=== PATIENT | male | born 1950 | race Caucasian/White ===

== ENCOUNTER → 2016-11-25 | Outpatient (CLI) | payer BC, MEDICARE ==
[~2016-11-25] MED LIST: ACET-1138 PO; ADVIN25/60 INH; ASPI81TA28 PO; CRS/10 PO; ENOX80IN SQ; MCRB100 PO; METO1TAB69 PO; MULT-506 PO; OMEG10007 PO; RXC5 PO; VALS320T2 PO; WARF4TAB8 PO; WARF6TAB5 PO
[2016-11-25 14:00] LABS: BASO % 0.5 %; BASO ABS # 0.03 K/uL (0-0.2); COMPLETE YES; EOS % 2.2 %; HEMATOCRIT 44.3 % (42-52); IG% 0.2 %; LYMPH % 20.3 %; LYMPH ABS # 1.11 K/uL (1.2-3.4); MEAN CELL VOLUME 94.7 fL (80-100); MEAN CORPUSCULAR HEMOGLOBIN 32.3 pg (25-34); MEAN CORPUSCULAR HGB CONC 34.1 g/dl (32-36); MEAN PLATELET VOLUME 10.5 fL (7.4-10.4); MONO % 13.3 %; NEUT % 63.5 %; PLATELET COUNT 170 K/uL (130-400); RED BLOOD COUNT 4.68 M/uL (4.7-6.1); WHITE BLOOD COUNT 5.48 K/uL (4.8-10.8)
[2016-11-25 14:26] LABS: ALT/SGPT 21 U/L (12-78); BLOOD UREA NITROGEN 10 mg/dl (7-18); BUN/CREATININE RATIO 12.1 (10-20); CALCIUM 8.8 mg/dl (8.5-10.1); CARBON DIOXIDE 29 mmol/L (21-32); CHLORIDE 103 mmol/L (98-107); CHOLESTEROL 150 mg/dl (0-200); CREATININE 0.82 mg/dl (0.60-1.40); GLUCOSE 92 mg/dl (70-99); SODIUM 140 mmol/L (136-145)
[2016-11-25 14:36] LABS: ALB/GLOB RATIO 1.3 (0.9-2); ALKALINE PHOSPHATASE 54 U/L (45-117); AST/SGOT 20 U/L (15-37); CHOLESTEROL/HDL RATIO 2.5; HDL CHOLESTEROL 59 mg/dl; LDL CHOLESTEROL CALCULATED 78 mg/dl; PROSTATE SPECIFIC ANTIGEN 0.631 ng/ml (0.000-4.000); THYROID STIMULATING HORMONE 0.753 uIu/ml (0.300-4.500); TRIGLYCERIDES 65 mg/dl (0-150); VERY LOW DENSITY LIPOPROT CALC 13 mg/dl
[2016-11-25 14:41] LABS: ESTIMATED AVERAGE GLUCOSE 105 mg/dl; HA1C FLAG Normal (Normal)
== END | disposition home or self-care (01) ==
LOC: C.LABMFLN 11:00
PROVIDERS: ATTEND Family Medicine
DX: Z11.59 Encounter for screening for other viral diseases (principal); I10 Essential (primary) hypertension; E78.5 Hyperlipidemia, unspecified; R73.01 Impaired fasting glucose; Z12.5 Encounter for screening for malignant neoplasm of prostate

== ENCOUNTER 2017-02-28 08:14 | Inpatient (IN) | payer MEDICARE, OTHER ==
[2017-02-10 11:43] VITALS: BMI 32.0
--- NOTE | 2017-02-10 12:21 | PAT Medication Instructions ---
Service Date Feb 10, 2017. Current Home Medication List Aspirin (Aspirin Ec), 81 MG PO QAM Fish Oil (Fresno-3), 1 CAP PO QAM Fluticasone Prop/Salmeterol (Advair Diskus 250/50 60 Dose), 1 PUFF INH BID PRN for PRN Metoprolol Succ (Toprol Xl) (Toprol-Xl ), 150 MG PO QAM Multivitamin (Multivitamin), 1 TAB PO QAM Rosuvastatin Calcium (Crestor), 10 MG PO HS Valsartan/Hctz (Diovan Hct 320MG/25MG), 1 TAB PO QAM Warfarin Sod (Jantoven), 4 MG PO MONDAY Warfarin Sod (Jantoven), 6 MG PO M,T,R,F.,NOE Medication Instructions For Your Scheduled Surgery Warfarin Sod (Jantoven (per [facility] instructions) - Hold the following medications 2 weeks prior to surgery: Fish Oil (Fresno-3), 1 CAP PO QAM - Hold the following medications the morning of surgery: Valsartan/Hctz (Diovan Hct 320MG/25MG), 1 TAB PO QAM Multivitamin (Multivitamin), 1 TAB PO QAM - Take the following medications the morning of surgery with a sip of water: Metoprolol Succ (Toprol Xl) (Toprol-Xl ), 150 MG PO QAM Aspirin (Aspirin Ec), 81 MG PO QAM Fluticasone Prop/Salmeterol (Advair Diskus 250/50 60 Dose), 1 PUFF INH BID PRN for PRN - Take the following medications as scheduled the night before surgery: Rosuvastatin Calcium (Crestor), 10 MG PO HS Fluticasone Prop/Salmeterol (Advair Diskus 250/50 60 Dose), 1 PUFF INH BID PRN for PRN If you have any questions please call us at [phone] or [phone] ( [place]) or [phone]
[2017-02-10 12:43] LABS: BASO % 0.6 %; BASO ABS # 0.04 K/uL (0-0.2); COMPLETE YES; EOS % 1.6 %; HEMATOCRIT 43.6 % (42-52); IG% 0.4 %; LYMPH % 16.8 %; LYMPH ABS # 1.12 K/uL (1.2-3.4); MEAN CELL VOLUME 94.8 fL (80-100); MEAN CORPUSCULAR HEMOGLOBIN 32.4 pg (25-34); MEAN CORPUSCULAR HGB CONC 34.2 g/dl (32-36); MEAN PLATELET VOLUME 9.8 fL (7.4-10.4); MONO % 13.8 %; NEUT % 66.8 %; PLATELET COUNT 174 K/uL (130-400); WHITE BLOOD COUNT 6.67 K/uL (4.8-10.8)
--- NOTE | 2017-02-10 12:48 | DIAGNOSTIC IMAGING REPORT ---
CHEST 2 VIEWS ROUTINE CLINICAL HISTORY: PAT preoperative evaluation COMPARISON STUDY: None FINDINGS: Prior median sternotomy and valve replacement. Lungs are clear. Diaphragms are smooth. IMPRESSION: No acute process Electronically signed by: Sancho Mcdonald M.D. 02/10/2017 12:47 PM Dictated Date/Time: 02/10/2017 12:46 PM
[2017-02-10 12:57] LABS: INR 2.2 (0.9-1.1); PARTIAL THROMBOPLASTIN RATIO 1.4
[2017-02-10 14:02] LABS: BUN/CREATININE RATIO 15.5 (10-20); CREATININE 0.8 mg/dl (0.60-1.40); POTASSIUM 4.6 mmol/L (3.5-5.1)
--- NOTE | 2017-02-24 19:27 | HISTORY & PHYSICAL EXAMINATION ---
DATE OF ADMISSION: 02/28/2017 CHIEF COMPLAINT: Right knee pain. HISTORY OF PRESENT ILLNESS: A 66-year-old gentleman who presents for surgical treatment of his right knee. He has got a several year history of increasing right knee pain and discomfort. He has been followed and treated by my partner Dr. Walsh. He has been treated over the years with steroid shots and viscosupplementation which have become less successful over time. Pain is localized to the medial side of his knee. It is limiting his walking tolerance and he would like to have his knee replaced. He cannot take NSAIDs due to his Coumadin use and his aortic valve replacement. PAST MEDICAL HISTORY: Significant for: 1. Aortic valve replacement with mechanical valve in 2005. 2. Hypertension. 3. Asthma. 4. Obesity with a BMI of 32. PAST SURGICAL HISTORY: 1. Aortic valve replacement done in 2005 at [facility]. 2. Laparoscopic adrenalectomy in 2015. 3. Double hernia repair. 4. Tailbone cyst removal. ALLERGIES: TETRACYCLINE. CURRENT MEDICINES: Include: 1. Warfarin 4 mg a day and adjust as directed. 2. Metoprolol 150 mg a day. 3. Valsartan 320/25 once a day. 4. Rosuvastatin 10 mg a day. 5. Fish oil 2000 mg a day. 6. Baby Aspirin 81 mg a day. 7. Advair p.r.n. SOCIAL HISTORY: A 66-year-old male patient from [place]. He is . FAMILY HISTORY: Noncontributory. REVIEW OF SYSTEMS: Negative for diabetes, neurologic problems, neurovascular problems or bleeding disorders. He is on Coumadin. He had a mechanical aortic valve replacement. He is followed by Dr. Gibbons in [place]. Denies any current chest pain or shortness of breath. No history of DVTs or PEs. PHYSICAL EXAMINATION: GENERAL: Reveals a healthy, pleasant, middle-aged male. He looks to be in reasonable health. HEENT: Benign. NECK: Supple. No lymphadenopathy. LUNGS: Clear to auscultation. HEART: Has a regular rate and rhythm. ABDOMEN: Soft, nontender, nondistended. EXTREMITIES: Grossly neurovascularly intact except as follows: Examination of the right leg reveals the patient walks with a slight bit of limp. He has got varus alignment to his knee. He is tender over the medial joint line. Small knee effusion. Range of motion 0-125. No instability. X-RAYS: X-rays of the right knee revealed advanced medial compartment DJD. He has got complete loss of his medial joint space. No tibial femoral subluxation. With stress testing, the lateral compartment is well maintained. ASSESSMENT: A 66-year-old male with a fairly long history of right medial knee pain consistent with advanced disease. He has failed conservative treatment. He has limited NSAIDs used due to do his Coumadin requirement. He would like to have his knee fixed. PLAN: We talked about treatment options. We were going to take him to the operating room and do a right partial knee replacement. If we get in there and disease is too bad, we will do a full knee replacement. The risks and benefits were explained to the patient including but not limited to DVT, PE, , infection, neurologic injury, vascular injury, bleeding problem, pain, limited range of motion, stiffness, failure to relieve her symptoms, incomplete relief of symptoms, need for further surgery in the future, fracture, leg length inequality, nerve palsy, etc. The patient understands and desires to proceed. Informed consent was obtained. He has seen Dr. Gibbons and cleared for surgery. He has stopped his Coumadin 5 days preoperatively and will be on Lovenox bridge. The goal postoperative we will keep his INR between 2.5 and 3.5 as per the cardiology request. He has been told to take his metoprolol the morning of surgery. I will get a stat PT and INR in the a.m. surgery. He is planning to be discharged to home. He is in [facility].
[~2017-02-28] VITALS: Ht 180.3 cm; Wt 106.4 kg
[~2017-02-28 08:14] MED LIST changes: -ACET-1138 PO; +ACETAMINOPHEN 500 MG TAB PO SCH; +ATROPINE SULFATE 0.1 MG/ML 5ML SYR IV PRN; +BUPIVACAINE 0.25% 30 ML VIAL ONE; +BUPIVACAINE 0.5 % 5 MG/1 ML PF 10ML VIAL ONE; +BUPIVACAINE LIPOSOME 266 MG, BUPIVACAINE/EPINEPHRINE INJ 50 ML, SODIUM CHLORIDE 0.9% PF... INFIL SCH; +CEFAZOLIN 2000 MG/60 ML D5W 60 ML IV SCH; -ENOX80IN SQ; +EpHEDrine SULFATE INJ 50 MG/ML AMP IV PRN; +FAMOTIDINE 20 MG TAB PO SCH; +FENTANYL CITRATE INJ 50 MCG/1 ML 2 ML VIAL IV PRN; +GABAPENTIN 300 MG CAP PO SCH; +LACTATED RINGER'S 1000ML IV SCH; +LACTATED RINGER'S 500 ML IV SCH; -MCRB100 PO; +METO100T44 PO; -METO1TAB69 PO; +METOCLOPRAMIDE HCL 10 MG TAB PO SCH; +ONDANSETRON INJ 2 MG/ML 2 ML VIAL IV PRN; -RXC5 PO; +SCOPOLAMINE 1.5 MG TDSY TD SCH; +TRANEXAMIC ACID INJ 1,000 MG in SODIUM CHLORIDE 0.9% 100ML 100 ML IV SCH
[2017-02-28] MEDS ORDERED: ENOX80IN SQ (08:32)
[2017-02-28 08:36] VITALS: BP 129/91; PULSE 78; TEMP 36.4; O2SAT 98; Ht 180.3 cm; Wt 106.4 kg
[2017-02-28 08:52] LABS: INR 1.1 (0.9-1.1); PARTIAL THROMBOPLASTIN RATIO 1.1; PROTHROMBIN TIME (PATIENT) 11.9 SECONDS (9.0-12.0)
--- NOTE | 2017-02-28 08:52 | History & Physical Bridge Note ---
H&P Re-Evaluation Bridge Note: I have examined the patient, reviewed the History & Physical and in the interval since the performance of the History & Physical I have noted the following changes of clinical significance: No changes noted
[2017-02-28] MEDS ORDERED: MIDAZOLAM HCL 1 MG/ML 2ML VIAL ONE (10:12)
[2017-02-28] MEDS ORDERED: BUPIVACAINE/EPINEPHRINE 0.25% 1:200,000 30 ML VIAL ONE (11:00)
[2017-02-28] MEDS ORDERED: BACITRACIN 50000 UNIT VIAL ONE (11:00)
[2017-02-28] MEDS ORDERED: BUPIVACAINE LIPOSOME 1/3% 266 MG/20 ML VIAL INFIL ONE (11:00)
[2017-02-28] MEDS ORDERED: SODIUM CHLORIDE 0.9% PF 50 ML VIAL ONE (11:00)
[2017-02-28] MEDS ORDERED: PROPOFOL IV EMULSION 10 MG/ML 20 ML VIAL IV ONE ×2 (11:38→12:11)
[2017-02-28] MEDS ORDERED: LIDOCAINE HCL 2% 2 ML VIAL (20MG/ML) ONE (11:38)
[2017-02-28] MEDS ORDERED: PHENYLEPHRINE 100MCG/ML 5ML SYR ONE (11:45)
--- NOTE | 2017-02-28 12:59 | [facility] Post Operative Brief Note ---
Immediate Operative Summary Operative Date Feb 28, 2017. Pre-Operative Diagnosis Right Knee Advanced Medial Compartment Degenerative Joint Disease Post-Operative Diagnosis Right Knee Advanced Medial Compartment Degenerative Joint Disease Procedure(s) Performed Right Knee Arthroplasty Uni-Compartmental Surgeon Dr. Pollard Press Catcher Surgeon(s) PALLAVI Potts Estimated Blood Loss 30 ml Findings Right Knee DJD Fluids (cc crystalloids) 1600 cc Specimens A. Right Knee Bone and Tissue Drains None Anesthesia Spinal Complication(s) None Disposition Recovery Room / PACU
[2017-02-28] MEDS ORDERED: ZOLPIDEM TARTRATE 5 MG TAB PO PRN (13:00)
[2017-02-28] MEDS ORDERED: MAGNESIUM HYDROXIDE SUSP 30 ML UDC PO PRN (13:00)
[2017-02-28] MEDS ORDERED: HYDROmorphone INJ 0.5 MG/0.5 ML SYR IV PRN (13:00)
[2017-02-28] MEDS ORDERED: ONDANSETRON INJ 2 MG/ML 2 ML VIAL IV PRN (13:00)
[2017-02-28] MEDS ORDERED: BISACODYL 10 MG SUPP PR PRN (13:00)
[2017-02-28] MEDS ORDERED: ALUMINUM/MAGNESIUM/SIMETH (MAALOX MAX) 30 ML UDC PO PRN (13:00)
[2017-02-28] MEDS ORDERED: TAMSULOSIN HCL 0.4 MG CAP PO PRN (13:00)
[2017-02-28] MEDS ORDERED: METOCLOPRAMIDE HCL INJ 5 MG/ML 2 ML VIAL IV PRN (13:00)
[2017-02-28] MEDS ORDERED: SILVER SULFADIAZINE 1% CR 50 GM JAR EXT PRN (13:00)
[2017-02-28] MEDS ORDERED: FLUTICASONE/SALMETEROL 250/50 (ADVAIR) 14 PUFF/1 INHALER INH PRN (13:15)
--- NOTE | 2017-02-28 13:28 | DIAGNOSTIC IMAGING REPORT ---
RIGHT KNEE 1 OR 2 VIEWS ROUTINE CLINICAL HISTORY: Postop study. COMPARISON: Outside examination dated 02/10/2017 DISCUSSION: There are postsurgical changes of a medial joint compartment arthroplasty. No acute fractures are visualized. There are overlying skin saud. There is air within the soft tissues consistent with the history of recent surgery. IMPRESSION: Postsurgical changes of a medial joint compartment arthroplasty Electronically signed by: Trent Stahl M.D. 02/28/2017 1:26 PM Dictated Date/Time: 02/28/2017 1:25 PM
--- NOTE | 2017-02-28 14:26 | Anesthesiology Progress Note ---
Anesthesia Post Op Note Date & Time Feb 28, 2017 at 14:25 Vital Signs Pain Intensity: 0 Vital Signs Past 12 Hours Date Time Temp Pulse Resp B/P Pulse Ox O2 Delivery O2 Flow Rate FiO2 02/28/17 14:15 59 24 114/66 99 Nasal Cannula 2 02/28/17 14:05 61 20 103/84 100 Nasal Cannula 2 02/28/17 13:55 36.8 64 16 94/69 100 Nasal Cannula 2 02/28/17 13:45 58 21 110/57 100 Nasal Cannula 2 02/28/17 13:35 58 21 104/64 100 Mask 10 02/28/17 13:25 62 18 109/63 100 Mask 10 02/28/17 13:15 60 18 107/57 96 Mask 10 02/28/17 13:05 36.1 69 23 96/63 100 Mask 10 02/28/17 08:36 36.4 78 18 129/91 98 Room Air Notes Mental Status: alert / awake / arousable, participated in evaluation Pt Amnestic to Procedure: Yes Nausea / Vomiting: adequately controlled Pain: adequately controlled Airway Patency, RR, SpO2: stable & adequate BP & HR: stable & adequate Hydration State: stable & adequate Neuraxial Anesthesia: was administered, sensory block is resolving Anesthetic Complications: no major complications apparent
--- NOTE | 2017-02-28 15:15 | OPERATIVE REPORT ---
DATE OF OPERATION: 02/28/2017 SURGEON: Scott Pollard MD MANAGER ADMINISTRATION: PALLAVI Eason PREOPERATIVE DIAGNOSIS: Right knee medial compartment degenerative joint disease. POSTOPERATIVE DIAGNOSIS: Same. PROCEDURE PERFORMED: Right Biomet [place] mobile-bearing partial knee replacement. COMPLICATIONS: None. ESTIMATED BLOOD LOSS: 30 mL. FLUID REPLACEMENT: 1600 mL crystalloid fluid replacement. ANESTHESIA: Spinal with adductor canal block. DRAINS: None. SPECIMENS: Right knee sent for pathology. OPERATIVE INDICATIONS: The patient is a 66-year-old gentleman who has had a long history of right-sided knee pain. He has been through extensive conservative treatment. He is continued to be limited by his knee pain. X-rays revealed advanced medial compartment DJD. The patient does have a past medical history consistent with an aortic valve replacement and atrial fibrillation. He was medically optimized and indicated for partial knee replacement. OPERATIVE FINDINGS: Operative findings revealed advanced right knee medial compartment DJD. His lateral and patellofemoral compartments were fairly pristine. His ACL and PCL were intact. He did have grade 4 changes of the medial femoral condyle and medial tibial plateau. OPERATIVE IMPLANTS: Operative implants consisted of: 1. Biomet [place] size medium femoral component. 2. Biomet right medial size D tibial tray. 3. A 4-mm mobile-bearing polyethylene insert. OPERATIVE PROCEDURE: The patient was taken to the operating room, identified and placed on the operating table in supine position. All contact areas were appropriately padded. IV antibiotics were provided by the anesthesia team. A spinal anesthetic and adductor canal block had been provided in the holding area. Watkins catheter was attempted, but we were unable to place a Watkins catheter. He had an unusual urethra with some degree of hypospadias. We elected not to force this and to get an urologic consult postoperatively. A right thigh tourniquet was then placed. The right lower extremity was then prepped and draped in the usual sterile fashion. The right leg was elevated and exsanguinated with Esmarch and tourniquet was placed at 300 mmHg. An anterior approach to the right knee was then performed through a longitudinal incision, centered over the medial aspect of the patellar tendon. This was extended from the superior pole of patella to just medial to the tibial tubercle. Sharp dissection was carried out through the subcutaneous tissues down to the level of the extensor mechanism. The subcutaneous tissues were mobilized. The arthrotomy was placed just medial to the extensor mechanism from the superior pole of the patella to the tibial tubercle. I then made this arthrotomy obliquely about 45-degree angle into the VMO. Some subperiosteal dissection was carried out medially. The fat pad was resected from beneath the patellar tendon. I then examined the knee and the medial compartment was worn as expected. The remainder of the knee looked fairly well preserved, so we elected to proceed with partial knee replacement. Some osteophytes were removed from the distal femur. The external tibial alignment jig was then placed in the anterior face of the tibia. The medium spoon was placed and attached to the tibial guide. The guide was secured in place with a pin. A proximal tibial cut was made. The tibia was sized to a size D. The intramedullary guide was then placed. Using the femoral medium sized templates set at 4, this was attached to the IM guide. The holes were drilled for the femoral component. The posterior cutting guide was placed and the posterior cut was made. The 0 spigot was placed and the distal femur was milled. We then trialed the knee and the 4 feeler gauge fit appropriately in flexion and the 2 in extension. We then used the 2 spigot and milled the distal femur. We then trialed the knee and the 4 feeler gauge fit appropriately in both flexion and extension. I then removed all implants. The posterior osteophyte cutting guide was placed. The posterior osteophyte was removed. The milling device for the proximal femur was used to create the anterior defect for the femoral component. The tibial tray was then pinned in place and the toothbrush saw blade was used to create the trough for the tibial tray. Of note, we had previously removed the medial meniscus. We then trialed the knee and the 4 feeler gauge and the 4 implant fit appropriately in both flexion and extension. Attention was then drawn toward placement of permanent components. All trial components were removed. I irrigated extensively. I did inject locally a total of 100 mL of a combination of 20 mL of Exparel, 30 mL of normal saline, and 50 mL of 0.25% Marcaine with epinephrine. We irrigated the wound extensively. A single batch of Palacos G cement was mixed. A right medial size D tibial tray was then cemented in place followed by a medium femoral component. I placed a 4 feeler gauge and brought the knee out in extension. All extraneous cement was removed. We then held the knee in 45 degrees of flexion until the cement hardened. A final cement check was then performed. We trialed the knee and the 4 insert fit appropriately. A permanent 4 insert was placed. Attention was then drawn toward closing. The wound was irrigated with copious amounts of normal saline. The patient did receive 1 dose of tranexamic acid. The extensor mechanism was then closed with #1 Vicryl suture in a [id number] fashion. The subcutaneous tissues were then closed with 2-0 Dexon suture in a buried interrupted fashion. Skin was closed with skin saud. Leg was then cleaned and dried and a sterile dressing with Xeroform, 4 x 4, sterile cast padding and Manfred bandage were applied. The patient then transferred to the recovery room in stable condition. The patient tolerated the procedure well with no complications. All needle and sponge counts were correct at the end of the operation. I attest to the content of the Intraoperative Record and any orders documented therein. Any exceptions are noted below. BELEN
[2017-02-28 16:00] VITALS: BP_SYST 131; BP_SYST 156; BP_DIAS 80; BP_DIAS 91; PULSE 60; PULSE 63; TEMP 36.5; TEMP 36.6; O2SAT 100
[2017-02-28] MEDS ORDERED: WARFARIN SOD 6 MG TAB PO ONE (16:00)
[2017-02-28] MEDS: CHECK SCOPOLAMINE PATCH PLACEMENT SCH ×2 (16:00→23:32)
[2017-02-28 16:32] VITALS: BP 135/81; PULSE 59; TEMP 36.6; O2SAT 100
[2017-02-28 16:43] LABS: MANUAL MICROSCOPIC REQUIRED? NO; REVIEW REQ? NO; URINE APPEARANCE CLEAR (CLEAR); URINE BILIRUBIN NEG (NEG); URINE COLOR YELLOW; URINE NITRITE NEG (NEG); URINE PH 7.5 (4.5-7.5); URINE SPECIFIC GRAVITY 1.007 (1.000-1.030); UROBILINOGEN NEG (NEG); ZZURINE CULT IF INDIC CATH NO
[2017-02-28] MEDS ORDERED: WARFARIN SOD 7.5 MG TAB PO ONE (17:00)
[2017-02-28] MEDS: D5W AND 1/2NSS + 20MEQ KCL 1,000 ML IV SCH (17:05)
[2017-02-28] MEDS: KETOROLAC TROMETHAMINE 15 MG/ML VIAL IV. SCH ×2 (17:06→23:31)
[2017-02-28] MEDS: OXYCODONE HCL IR 5 MG TAB (IMMEDIATE RELEASE) PO PRN (17:07)
[2017-02-28] MEDS ORDERED: NURSING VERBAL MED ORDER ONE (17:30)
[2017-02-28 17:59] VITALS: BP 143/87; PULSE 63; TEMP 37; O2SAT 98
[2017-02-28] MEDS ORDERED: WARFARIN SOD 10 MG TAB PO ONE (18:00)
[2017-02-28 19:13] VITALS: BP 124/84; PULSE 61; TEMP 36.8; O2SAT 96
[2017-02-28] MEDS: CEFAZOLIN IV 2,000 MG in DEXTROSE 5% 50ML 50 ML IV SCH (19:42)
[2017-02-28] MEDS: DOCUSATE SODIUM 100 MG CAP PO SCH (21:07)
[2017-02-28] MEDS: ROSUVASTATIN CALCIUM 10 MG TAB PO SCH (21:07)
[2017-02-28] MEDS: TAPENTADOL ER 50 MG TABCR PO SCH (21:07)
[2017-02-28] MEDS: ACETAMINOPHEN 500 MG TAB PO SCH (21:08)
[2017-02-28 23:04] VITALS: BP 131/81; PULSE 65; TEMP 37; O2SAT 95
--- NOTE | 2017-02-28 23:25 | CONSULTATION REPORT ---
DATE OF CONSULTATION: 02/28/2017 REASON FOR THE CONSULT: Urethral stenosis, meatal stenosis, difficult Watkins placement. 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 He does have a history of having difficulty having a catheter placed 12 years ago when he had his aortic valve replaced. At that time, they placed a very small catheter he said. He had been using a meatal dilator but has not been using it recently and has been sitting to urinate with very slow stream. Postoperatively, he had greater than a liter in his bladder with not a lot of discomfort, which suggests he has possible neurogenic bladder. PAST MEDICAL HISTORY: Significant for aortic valve replacement, laparoscopic adrenalectomy, double hernia repair, tailbone cyst removal. He also has a past medical history for hypertension, asthma and obesity. MEDICATIONS: Include: 1. Coumadin 4 mg a day. 2. Metoprolol 150 mg a day. 3. Valsartan 320/25 daily. 4. Crestor daily. 5. Baby aspirin. 6. Advair. REVIEW OF SYSTEMS: Negative for diabetes, neurogenic problems, neurovascular problems or bleeding disorders. He has a mechanical valve replacement. Denies any chest pain or shortness of breath. SOCIAL HISTORY: No history of DVTs or PEs. PHYSICAL EXAMINATION: GENERAL: The patient is a slightly overweight male, in no apparent distress. HEENT: Unremarkable. LUNGS: Clear to auscultation. HEART: No evidence of pulmonary edema. ABDOMEN: Soft, nontender. EXTREMITIES: Unremarkable. GENITOURINARY: He has a normal male phallus with hypospadias from a previous meatotomy with a very narrow opening. Prostate exam is deferred secondary to the patient being in bed. ASSESSMENT: The patient had severe meatal stenosis. I was able to dilate him with a 14-and a 16-Georgian initially but then I had to get pediatric dilators to really dilate his more distal urethra. I was able to dilate him to a 16-Georgian with some difficulty with pediatric dilators and then was able to get a wire into his bladder and over the wire using a catheter punch was able to make a Councill catheter from a 12-Georgian Watkins and was able with great difficulty to get this into his bladder. We drained a liter of clear urine. We will leave this in and we will follow the patient and we will need to discuss possible referral for surgery for his urethra.
[2017-03-01] MEDS: D5W AND 1/2NSS + 20MEQ KCL 1,000 ML IV SCH (02:22)
--- NOTE | 2017-03-01 03:03 | GENITOURINARY CONSULTATION ---
DATE OF CONSULTATION: 02/28/2017 REASON FOR THE CONSULT: Urethral meatal stenosis with severe urethral stricture. 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 He had what appears to be a meatotomy causing a ventral hypospadias years ago and subsequent to this was self dilating himself with meatal dilator. His physician retired many years ago, over a decade and patient has not seen any urologist since then and he has stopped dilating this area. The last time he had surgery for a heart valve in 2004, he had a pediatric catheter placed to get something into his bladder. He has not recently seen a urologist. He has to sit to void and apparently it comes quite slowly and with some difficulty. The patient was taken for a total knee replacement on the right side today by Dr. Pollard. They were unable to access the urethra because it was so stenosed and asked me postoperatively to see patient for catheter placement. The patient had over a liter of urine in the recovery room when I got there to see him. He has severe stenosis, I did get Zenon sounds and was able to dilate with the smallest of 16 with some difficulty but not very far into the urethra. Then I had got pediatric sounds, was able to dilate slightly further into the urethra up to 14 Slovak. Subsequently, I attempted to pass a 12 Slovak catheter unsuccessfully. Because patient said he had success with a small and I did try pediatric catheter, but there was not enough rigidity to the catheter to push this beyond the strictured area. Subsequently, I was able to pass a guidewire into the bladder and then a 5 Slovak open-ended catheter in through the guidewire to confirm that there was urine coming out and then I dilated them with the blue S curved sounds over the guidewire to 16 Slovak. I was unable to make a ugashik tip catheter out of the 12 Slovak catheter using a punch biopsy punching a hole at the end of the catheter and then I slid the 12 Slovak catheter over the guidewire and with some force was able to get the catheter into the bladder. The bladder drained over a liter of clear urine. PAST MEDICAL HISTORY: Significant for aortic valve replacement with mechanical valve in 2005, hypertension, asthma. The patient has obesity with a BMI of 32. Laparoscopic adrenalectomy in 2016, a double hernia repair, tailbone cyst removal. MEDICATIONS: Coumadin 4 mg a day, metoprolol, valsartan 320/25, Crestor 10 mg a day, fish oil 2000 mg a day, baby aspirin 81 mg a day, and Advair. REVIEW OF SYSTEMS: Negative for diabetes, neurologic problems, neurovascular problems, bleeding disorder. He is on Coumadin. He has a history of heart valve replacement. Denies any shortness of breath, history of DVT or pulmonary emboli. PHYSICAL EXAMINATION: GENERAL: Reveals a healthy male in no apparent distress. His right knee has a dressing. HEENT: Unremarkable. RESPIRATORY: He has no breathing difficulties. ABDOMEN: Soft, nontender. EXTREMITIES: No pedal edema. As previously noted, has a bandage on the right side. ASSESSMENT: A 66-year-old male status post right knee replacement with chronic retention and a severe meatal stenosis and urethral stricture, who with great difficulty had a difficult Watkins placed and was dilated with 16 Slovak. We will leave the catheter in and we will order urine culture. I think that this will scar down quickly and he needs to follow up with a tertiary center to discuss surgery for this stricture and meatal stenosis. For the short term we will leave the catheter. BELEN
[2017-03-01 03:38] VITALS: BP 116/74; PULSE 75; TEMP 37.5; O2SAT 94
[2017-03-01] MEDS: CEFAZOLIN IV 2,000 MG in DEXTROSE 5% 50ML 50 ML IV SCH (04:08)
[2017-03-01] MEDS: OXYCODONE HCL IR 5 MG TAB (IMMEDIATE RELEASE) PO PRN ×2 (04:11→20:48)
[2017-03-01] MEDS: ACETAMINOPHEN 500 MG TAB PO SCH ×3 (05:29→21:11)
[2017-03-01] MEDS: KETOROLAC TROMETHAMINE 15 MG/ML VIAL IV. SCH ×2 (05:30→12:26)
[2017-03-01 05:36] LABS: HEMATOCRIT 38.7 % (42-52); MEAN CORPUSCULAR HEMOGLOBIN 32.3 pg (25-34); MEAN CORPUSCULAR HGB CONC 33.3 g/dl (32-36); MEAN PLATELET VOLUME 9.9 fL (7.4-10.4); PLATELET COUNT 130 K/uL (130-400); RED BLOOD COUNT 3.99 M/uL (4.7-6.1); WHITE BLOOD COUNT 7.06 K/uL (4.8-10.8)
[2017-03-01 05:57] LABS: INR 1.2 (0.9-1.1)
[2017-03-01 05:59] LABS: BUN/CREATININE RATIO 11.7 (10-20); CREATININE 1.1 mg/dl (0.60-1.40); POTASSIUM 4.1 mmol/L (3.5-5.1)
[2017-03-01 07:19] VITALS: BP 112/74; PULSE 71; TEMP 36.7; O2SAT 93
[2017-03-01] MEDS: CHECK SCOPOLAMINE PATCH PLACEMENT SCH ×3 (08:08→23:00)
[2017-03-01] MEDS ORDERED: MULTIVITAMIN TAB PO SCH (09:00)
[2017-03-01] MEDS ORDERED: VALSARTAN/HCTZ 160/12.5 MG TAB PO SCH (09:00)
--- NOTE | 2017-03-01 09:01 | Progress Note ---
Subjective Date of Service: Mar 01, 2017. Subjective Pt evaluation today including: conversation w/ patient, chart review, lab review Voiding: fan catheter in place (patent, draining clear, yellow urine) 66 yo male with difficult fan placement s/p TKA for severe meatal stenosis and urethral stricture. Urine is clear yellow this morning. Pt denies pain other than right knee pain. Review of Systems Constitutional: No chills, No fever Respiratory: No shortness of breath Cardiac: No chest pain Abdomen: No nausea, No pain, No vomiting Male : No hematuria Heme: No abnormal bleeding/bruising Objective Vital Signs Date Time Temp Pulse Resp B/P Pulse Ox O2 Delivery O2 Flow Rate FiO2 03/01/17 07:19 36.7 71 17 112/74 93 Room Air 03/01/17 03:38 37.5 75 16 116/74 94 Room Air 02/28/17 23:04 37.0 65 18 131/81 95 Room Air 02/28/17 19:40 Room Air 02/28/17 19:13 36.8 61 16 124/84 96 Room Air 02/28/17 17:59 37.0 63 16 143/87 98 Room Air 02/28/17 16:32 36.6 59 16 135/81 100 Nasal Cannula 2.0 02/28/17 16:00 100 Nasal Cannula 2.0 02/28/17 16:00 36.6 63 16 131/80 100 Nasal Cannula 2.0 02/28/17 16:00 36.5 60 16 156/91 100 Nasal Cannula 2.0 02/28/17 16:00 Nasal Cannula 2.0 02/28/17 14:30 62 20 112/78 99 Nasal Cannula 2 02/28/17 14:15 59 24 114/66 99 Nasal Cannula 2 02/28/17 14:05 61 20 103/84 100 Nasal Cannula 2 02/28/17 13:55 36.8 64 16 94/69 100 Nasal Cannula 2 02/28/17 13:45 58 21 110/57 100 Nasal Cannula 2 02/28/17 13:35 58 21 104/64 100 Mask 10 02/28/17 13:25 62 18 109/63 100 Mask 10 02/28/17 13:15 60 18 107/57 96 Mask 10 02/28/17 13:05 36.1 69 23 96/63 100 Mask 10 Physical Exam General Appearance: no apparent distress Eyes: normal inspection ENT: hearing grossly normal Neck: no JVD Respiratory/Chest: no respiratory distress, no accessory muscle use Cardiovascular: no JVD Extremities: normal inspection Neurologic/Psychiatric: alert, normal mood/affect, oriented x 3 Skin: normal color Laboratory Results Last 24 Hours Test 02/28/17 15:45 03/01/17 05:19 Urine Color YELLOW Urine Appearance CLEAR Urine pH 7.5 Urine Specific Ketchum 1.007 Urine Protein NEG Urine Glucose (UA) NEG Urine Ketones NEG Urine Occult Blood 3+ Urine Nitrite NEG Urine Bilirubin NEG Urine Urobilinogen NEG Urine Leukocyte Esterase NEG Urine WBC (Auto) 1-5 /hpf Urine RBC (Auto) 5-10 /hpf Urine Hyaline Casts (Auto) 1-5 /lpf Urine Epithelial Cells (Auto) 10-20 /lpf Urine Bacteria (Auto) NEG White Blood Count 7.06 K/uL Red Blood Count 3.99 M/uL Hemoglobin 12.9 g/dL Hematocrit 38.7 % Mean Corpuscular Volume 97.0 fL Mean Corpuscular Hemoglobin 32.3 pg Mean Corpuscular Hemoglobin Concent 33.3 g/dl RDW Standard Deviation 48.8 fL RDW Coefficient of Variation 13.6 % Platelet Count 130 K/uL Mean Platelet Volume 9.9 fL Prothrombin Time 13.0 SECONDS Prothromb Time International Ratio 1.2 Sodium Level 138 mmol/L Potassium Level 4.1 mmol/L Chloride Level 104 mmol/L Carbon Dioxide Level 25 mmol/L Anion Gap 9.0 mmol/L Blood Urea Nitrogen 13 mg/dl Creatinine 1.10 mg/dl Est Creatinine Clear Calc Drug Dose 83.1 ml/min Estimated GFR () 81.2 Estimated GFR (Non- 70.1 BUN/Creatinine Ratio 11.7 Random Glucose 118 mg/dl Calcium Level 8.0 mg/dl Assessment and Plan A/P: Meatal stenosis and urethral stricture s/p difficult fan placement AFVSS. Recommend leaving fan catheter in place for now. Will plan for outpatient f/u in [address] Aponte. Possible trial of void at that time. No further management at this time. Recall PRN issues. Will arrange for outpatient f/u.
[2017-03-01] MEDS: DOCUSATE SODIUM 100 MG CAP PO SCH ×2 (09:22→20:47)
[2017-03-01] MEDS: VALSARTAN 80 MG TAB PO SCH (09:23)
[2017-03-01] MEDS: METOPROLOL SUCC 50MG EXT REL TAB PO SCH (09:23)
[2017-03-01] MEDS: ASPIRIN 81 MG ECTAB PO SCH (09:24)
[2017-03-01] MEDS: PANTOprazole SOD 40 MG TAB PO SCH (09:24)
[2017-03-01] MEDS: MULTIVITAMIN TAB PO SCH (09:24)
[2017-03-01] MEDS: HYDROCHLOROTHIAZIDE 25 MG TAB PO SCH (09:25)
[2017-03-01] MEDS: TAPENTADOL ER 50 MG TABCR PO SCH ×2 (09:34→20:47)
[2017-03-01 11:15] VITALS: BP 123/78; PULSE 54; TEMP 36.7; O2SAT 98
--- NOTE | 2017-03-01 12:11 | CARDIOLOGY CONSULTATION ---
DATE OF CONSULTATION: 03/01/2017 CONSULTATION FOR: Orthopedic service. REASON FOR CONSULTATION: Cardiac management. HISTORY: This is a 66-year-old male patient who in 2005 at [facility], underwent open heart surgery and received a mechanical [place] valve in the aortic position for severe aortic stenosis. At that time, he had a cardiac catheterization, which showed normal coronary arteries. He also has a history of chronic atrial fibrillation. He has been followed by Dr. Destin Cho at [facility] in [place] for many years. He was last seen there in December, at which time the patient was doing well. The patient underwent a partial right knee replacement. The surgery was noncomplicated. He does have an urethral stricture and the urology service was consulted and he currently has a Watkins catheter in place. The patient has no history of hematuria before admission or after his surgery. He has been taking Coumadin as an outpatient for his atrial fibrillation and mechanical AVR. He typically takes 6 mg daily except on Wednesdays when he takes 8 mg. He has no other significant cardiac history and is otherwise healthy. ALLERGIES: ATORVASTATIN, PENICILLIN AND TETRACYCLINE. PAST MEDICAL HISTORY: As per the history of chief complaint. In 2005, he had a mechanical [place] valve placed in the aortic position for aortic stenosis. He does have a history of rheumatic fever. He has had chronic atrial fibrillation since that surgery. He has no history of coronary artery disease and actually had normal coronary arteries at cardiac catheterization in 2008. He has no history of diabetes or strokes. He has mild essential hypertension and dyslipidemia. SOCIAL HISTORY: He lives with his . He is a nonsmoker. FAMILY MEDICAL HISTORY: Noncontributory. REVIEW OF SYSTEMS: A 10-point review of systems is negative except for the history of chief complaint. PHYSICAL EXAMINATION: GENERAL: He is alert, oriented, and comfortably sitting in a chair. VITAL SIGNS: Blood pressure 110/70, pulse is irregular at 71. He is afebrile. HEENT: Normocephalic. Pupils are equal and reactive to light. Extraocular muscles are intact bilaterally. NECK: The neck veins are flat. Carotids have good upstrokes bilaterally without bruits. Thyroid is nonpalpable. RESPIRATORY: Breath sounds equal bilaterally and clear to auscultation. CARDIOVASCULAR: Heart has an irregular rhythm. There is a mechanical S2. No S3 or S4. GASTROINTESTINAL: Abdomen is soft and nontender without organomegaly. EXTREMITIES: Free of edema, digit clubbing, or cyanosis. NEUROLOGIC: Grossly intact. SKIN: Warm to touch. LYMPH NODES: Negative to palpation. IMPRESSION: 1. Right partial knee replacement. 2. Status post mechanical valve in the aortic position for aortic stenosis. 3. History of rheumatic fever. 4. Chronic atrial fibrillation. RECOMMENDATIONS: This patient needs to be bridged until his Coumadin is therapeutic. I think he should have full Lovenox anticoagulation at mg/kg every 12 hours until his INR is at least above 2. He has been restarted on his Coumadin dose. We will follow along with you during his hospital stay.
[2017-03-01] MEDS ORDERED: ENOXAPARIN 30 MG/0.3 ML SYR SQ SCH (13:00)
--- NOTE | 2017-03-01 13:24 | PROGRESS NOTE ---
DATE: 03/01/2017 SUBJECTIVE: A 66-year-old gentleman postop day 1 from a right partial knee replacement. He has done reasonably well. They finally did get a Watkins catheter in him last evening. He denies any chest pain or shortness of breath. He has had some shakes of unclear etiology. Had an episode last night and then earlier this morning. No chest pain or shortness of breath. OBJECTIVE: VITAL SIGNS: Temperature 36.7. Vital signs stable. GENERAL: Healthy, pleasant, middle-aged male. He is lying in bed, looks pretty comfortable. EXTREMITIES: Examination of the right leg reveals the dressing to be reinforced. He can dorsiflex and plantarflex his foot appropriately. He can do a straight leg raise. LABORATORY DATA: Hemoglobin 12.9, hematocrit 38.7. Electrolytes are stable. ASSESSMENT: A 66-year-old gentleman with a history of aortic valve replacement in atrial fibrillation postop day 1 from a right partial knee replacement. He has been doing pretty well. The exact cause of these rigors or shakes are unclear. He has got no focal neurological issues. His cardiac exam is benign. PLAN: 1. DVT prophylaxis including thigh-high TEDs, SCDs, and will put him on whatever anticoagulation cardiology recommends, that should be plenty for his leg. There are some concerns with the bleeding, but I think we are obligated to follow cardiology's recommendations. 2. PT/OT. Weightbearing as tolerated. Right total knee protocol. 3. Pain control, doing well with current pain regimen. 4. Disposition: He is hoping to be discharged to home with some home health once adequately recovered. We are going to keep him for the next day or so due to his significant medical history and make sure he is doing okay before discharge.
[2017-03-01] MEDS: ENOXAPARIN 120 MG/0.8 ML SYR SQ SCH ×2 (13:38→22:46)
[2017-03-01 15:06] VITALS: BP 111/68; PULSE 75; TEMP 37.3; O2SAT 94
[2017-03-01] MEDS ORDERED: WARFARIN SOD 10 MG TAB PO SCH (16:00)
[2017-03-01] MEDS ORDERED: MCRB100 PO (19:13)
[2017-03-01] MEDS ORDERED: ACET-1138 PO (19:13)
[2017-03-01] MEDS ORDERED: RXC5 PO (19:13)
--- NOTE | 2017-03-01 19:17 | Discharge Instructions ---
Discharge Instructions Date of Service Mar 01, 2017. Admission Reason for Admission: Right Knee Osteoarthritis, Knee Pain Discharge Discharge Diagnosis / Problem: Right Partial Knee Replacement Discharge Goals Goal(s): Decrease discomfort, Improve function, Increase independence, Improve disease control, Therapeutic intervention Activity Recommendations Activity Limitations: per Instructions/Follow-up section Weightbearing Status: Right weightbearing . Instructions / Follow-Up Instructions / Follow-Up ACTIVITY RECOMMENDATIONS: Physical Therapy: * You will go to physical therapy three times each week for four to six weeks after your surgery in order to regain your knee range of motion and to retrain your knee to work properly. * It is just as important to make sure you are getting your knee perfectly straight as it is to regain your knee bend. * Taking a pain pill an hour before therapy can help you have a more productive and comfortable therapy session. Home Exercise: * You were shown a series of exercises (heel props, heel slides, etc.) in the hospital. Do these exercises three to four times each day including the exercises you were shown in physical therapy. Walking: * Get up and walk several times each day. For the first four weeks, try not to stand or walk for more than one hour at a time. If you do stand or walk for more than one hour, you will not hurt anything, but your knee and leg will likely swell. * As you feel comfortable, you may change from the walker or crutches to a cane and then to independent walking. MEDICATIONS: New Medicine: * You will likely be taking one or more of these medications: 1. Oxycodone - A quick and shorter-acting pain medication. Take one to two tablets every four to six hours to lessen your pain. * The most common side effects of pain medicine and iron are nausea and constipation. If nausea or constipation is too much of a problem or if you have any questions about your new medicines or doses, call [facility] at [phone]. We will try to help you manage these issues. VERY IMPORTANT TO READ AND REVIEW" Pain: * The immediate post-operative period after knee replacement surgery is often quite painful. * You are given a prescription for pain medicine. You should take it, as directed, when you need it, especially before physical therapy and before going to bed. Pain that interferes with sleep is very common and can last several months. * You will likely need pain medicine for the first four to six weeks. It will not stop all of the pain. The pain will lessen and as you feel better, you may change to milder pain medicine such as Tylenol. * The most common side effects of pain medicine are nausea and constipation, so don't take more than you need. SPECIAL CARE INSTRUCTIONS: TEDs/Elastic Stockings: * The white elastic stockings help limit swelling and prevent blood clots from forming in your legs. The more you wear them, the more they work. * Wear them for six weeks after knee replacement surgery and four weeks after partial knee replacement. Prevention of Infection: * Take antibiotics one hour before any dental cleaning, dental work, urological procedure, gastrointestinal procedure or any invasive surgery in order to prevent your new joint from getting infected. * You may get the antibiotics from the doctor performing the procedure or you may call our office at before and we will call in a prescription to the pharmacy of your choice. Things to Watch For: * Drainage from the incision site that occurs more than one week after your surgery. * Severely increased knee/leg pain or swelling. * Increased redness at the incision site. * Fever above 102 degrees Fahrenheit. * Unusual chest pain or shortness of breath. * Unusual pain or burning with urination. Call [facility] at with any of the above problems or if you have any questions about your medicines or recovery. FOLLOW UP VISIT: Make an appointment to see your doctor for approximately two weeks after surgery for a progress check and staple removal by calling the office at . Current Hospital Diet Patient's current hospital diet: Regular Diet Discharge Diet Recommended Diet: Regular Diet Procedures Procedures Performed: Right Knee Arthroplasty Uni-Compartmental Pending Studies Studies pending at discharge: no Medical Emergencies . Who to Call and When: Medical Emergencies: If at any time you feel your situation is an emergency, please call [phone] immediately. . Non-Emergent Contact Non-Emergency issues call your: Surgeon . "Provider Documentation" section prepared by Scott Pollard. . VTE Core Measure Inpt VTE Proph given/why not?: Other Anticoagulation, T.E.D. Stockings, SCD's
[2017-03-01] MEDS: ROSUVASTATIN CALCIUM 10 MG TAB PO SCH (21:10)
[2017-03-01 23:05] VITALS: BP 122/71; PULSE 74; TEMP 37.3; O2SAT 94
[2017-03-02] MEDS: ACETAMINOPHEN 500 MG TAB PO SCH (05:45)
[2017-03-02 05:59] LABS: INR 1.6 (0.9-1.1); PROTHROMBIN TIME (PATIENT) 17.2 SECONDS (9.0-12.0)
[2017-03-02 06:24] VITALS: BP 122/80; PULSE 76; TEMP 36.9; O2SAT 98
[2017-03-02] MEDS: MULTIVITAMIN TAB PO SCH (07:29)
[2017-03-02] MEDS: PANTOprazole SOD 40 MG TAB PO SCH (07:29)
[2017-03-02] MEDS: TAPENTADOL ER 50 MG TABCR PO SCH (07:30)
[2017-03-02] MEDS: VALSARTAN 80 MG TAB PO SCH (07:30)
[2017-03-02] MEDS: OXYCODONE HCL IR 5 MG TAB (IMMEDIATE RELEASE) PO PRN (07:31)
[2017-03-02] MEDS: ASPIRIN 81 MG ECTAB PO SCH (07:31)
[2017-03-02] MEDS: METOPROLOL SUCC 50MG EXT REL TAB PO SCH (07:32)
[2017-03-02] MEDS: HYDROCHLOROTHIAZIDE 25 MG TAB PO SCH (07:32)
[2017-03-02] MEDS: DOCUSATE SODIUM 100 MG CAP PO SCH (07:33)
--- NOTE | 2017-03-02 07:41 | PROGRESS NOTE ---
DATE: 03/02/2017 DATE: 03/02/2017. SUBJECTIVE: A 66-year-old gentleman postop day 2 from a right partial knee replacement. He is doing pretty well. No chest pain or shortness of breath. No further shaking episodes. His pain is reasonably well controlled. OBJECTIVE: VITAL SIGNS: Temperature is 36.9. Vital signs stable. PHYSICAL EXAMINATION: GENERAL: Reveals a healthy, pleasant, middle-aged male. He is sitting up in bed and looks reasonably comfortable. EXTREMITIES: Examination of the right leg reveals the dressing to be in place. There is a slight bit of bloody drainage on it. He can do a straight leg raise. No major knee effusion. His calf is soft and supple. He is neurologically intact. LABORATORY DATA: INR is 1.6. ASSESSMENT: A 66-year-old gentleman postop day 2 from a right partial knee replacement, doing reasonably well. INR is not quite therapeutic. Pain is reasonably well controlled. PLAN: 1. DVT prophylaxis including thigh-high TEDs, SCDs, and Coumadin with a goal of keeping his INR between 2.5 and 3.5. He is currently on Lovenox bridge as per cardiology. 2. PT/OT. Weightbearing as tolerated. Right total knee protocol. 3. Pain control. Doing reasonably well with current pain regimen. 4. Difficulty voiding. He has got a Watkins catheter in place. He will follow up with urology in 1 week. We will keep him on daily dose of Macrodantin until the Watkins is out. 5. Disposition. Plan to discharge to home with some home health.
[2017-03-02] MEDS ORDERED: NITROFURANTOIN MONOHYDRATE 100 MG CAP PO SCH (09:00)
[2017-03-02 11:08] VITALS: BP 122/80; PULSE 76; TEMP 36.9; O2SAT 98
[2017-03-02] MEDS: ENOXAPARIN 120 MG/0.8 ML SYR SQ SCH (11:39)
[2017-03-02] MEDS ORDERED: WARFARIN SOD 10 MG TAB PO SCH (16:00)
--- NOTE | 2017-03-07 16:11 | DISCHARGE SUMMARY ---
ADMITTING PHYSICIAN AND SURGEON: Dr. Pollard. ADMITTING DIAGNOSIS: Right knee degenerative joint disease. SURGERY PERFORMED: Right partial knee replacement. SECONDARY DIAGNOSES: Includes aortic valve replacement, hypertension, asthma, obesity. CONSULTS: Dr. Ag Azar, postoperative cardiac care, and Dr. Aponte urology for Watkins catheter placement. HISTORY AND PHYSICAL EXAMINATION: Well documented in the patient's chart. HOSPITAL COURSE: The patient was admitted on 02/28/2017 and underwent partial knee replacement. He tolerated the procedure well. There were no complications. He was transferred to the PACU postoperatively and later to the orthopedic floor for further care. He was given Ancef for antibiotic prophylaxis, LISSET stockings, SCDs, Coumadin and Lovenox for DVT prophylaxis. There was difficulty placing the Watkins catheter preoperatively. Dr. Aponte was consulted with urology and was able to place a catheter postoperatively. He was followed by urology service and cardiology service throughout his hospital stay. There were no complications. He had episode of some shaking postoperative day 1, but this did resolve. There were no complications. Hemoglobin, hematocrit and vital signs were monitored during his hospital stay and remained stable, did not require any blood transfusions. By postoperative day 2, he was tolerating a general diet, pain was controlled with oral pain medicine. He was participating in physical therapy and had no signs or symptoms of deep vein thrombosis. On postoperative day 2, he was discharged home in good condition, set up with home health services, given printed discharge instructions including new prescriptions for extra strength Tylenol, Macrodantin daily while he has the catheter in place, oxycodone. He can continue his home medications including Coumadin. Will continue physical therapy, weightbearing as tolerated, LISSET stockings. He will follow up in 10-12 days or sooner if any problems or concerns. He also was instructed to follow up with Dr. Aponte about 1 week postoperatively for removal of the catheter.
== END 2017-03-02 12:28 | disposition home health service (06) | DRG 470 ==
LOC: ENRESERVDT → ENRESERVTM → C.ACU 08:14 → C.3E 08:25
PROVIDERS: ADMIT Orthopaedic Surgery Sports Medicine; ATTEND Orthopaedic Surgery Sports Medicine
PROC: 0SRC0L9 Replacement of Right Knee Joint with Medial Unicondylar Synthetic Substitute, Cemented, Open Approach (ICD-10-PCS; principal; 2017-02-28 10:50)
DX: M17.11 Unilateral primary osteoarthritis, right knee (principal); I48.2 Chronic atrial fibrillation; E78.5 Hyperlipidemia, unspecified; Z79.01 Long term (current) use of anticoagulants; Z95.2 Presence of prosthetic heart valve; E66.9 Obesity, unspecified; J45.909 Unspecified asthma, uncomplicated; Z68.32 Body mass index [BMI] 32.0-32.9, adult; Z79.82 Long term (current) use of aspirin; N99.110 Postprocedural urethral stricture, male, meatal; Y83.8 Other surgical procedures as the cause of abnormal reaction of the patient, or of later complication, without mention of misadventure at the time of the procedure

== ENCOUNTER → 2017-03-10 | Outpatient (CLI) | payer MEDICARE ==
[~2017-03-10] MED LIST changes: +ACET-1138 PO; -ACETAMINOPHEN 500 MG TAB PO SCH; -ATROPINE SULFATE 0.1 MG/ML 5ML SYR IV PRN; -BUPIVACAINE 0.25% 30 ML VIAL ONE; -BUPIVACAINE 0.5 % 5 MG/1 ML PF 10ML VIAL ONE; -BUPIVACAINE LIPOSOME 266 MG, BUPIVACAINE/EPINEPHRINE INJ 50 ML, SODIUM CHLORIDE 0.9% PF... INFIL SCH; -CEFAZOLIN 2000 MG/60 ML D5W 60 ML IV SCH; +ENOX80IN SQ; -EpHEDrine SULFATE INJ 50 MG/ML AMP IV PRN; -FAMOTIDINE 20 MG TAB PO SCH; -FENTANYL CITRATE INJ 50 MCG/1 ML 2 ML VIAL IV PRN; -GABAPENTIN 300 MG CAP PO SCH; -LACTATED RINGER'S 1000ML IV SCH; -LACTATED RINGER'S 500 ML IV SCH; +MCRB100 PO; -METOCLOPRAMIDE HCL 10 MG TAB PO SCH; -ONDANSETRON INJ 2 MG/ML 2 ML VIAL IV PRN; +RXC5 PO; -SCOPOLAMINE 1.5 MG TDSY TD SCH; -TRANEXAMIC ACID INJ 1,000 MG in SODIUM CHLORIDE 0.9% 100ML 100 ML IV SCH
[2017-03-10 14:19] LABS: INR 1.9 (0.9-1.1); PROTHROMBIN TIME (PATIENT) 20.7 SECONDS (9.0-12.0)
--- NOTE | 2017-03-14 13:59 | CODING QUERY NO DIAGNOSIS ---
Valid Physician Order Needed A valid physician order must be submitted in order to properly bill for the service(s) provided, including date of service(s), valid diagnosis, and physician signature. If these tests are done on a recurring basis the original physican order must be submitted in order to code and bill for the service(s) provided. Please fax us the original, signed physician order so that we may expedite billing to [phone] DOS 03/10/17 * PT/INR ORDERED BY DR. CAUSEY Thank you Shellie [facility] Information Management
== END | disposition home or self-care (01) ==
LOC: C.LABSPEC 13:36
PROVIDERS: ATTEND Orthopaedic Surgery Sports Medicine
DX: Z51.81 Encounter for therapeutic drug level monitoring (principal); Z79.01 Long term (current) use of anticoagulants; Z47.1 Aftercare following joint replacement surgery; I10 Essential (primary) hypertension; I48.91 Unspecified atrial fibrillation

== ENCOUNTER → 2017-03-14 | Outpatient (CLI) | payer MEDICARE | END | disposition home or self-care (01) | LOC: C.LABMFLN 08:16 | PROVIDERS: ATTEND Urology | DX: N35.9 Urethral stricture, unspecified (principal); R33.9 Retention of urine, unspecified ==

== ENCOUNTER → 2017-03-17 | Outpatient (CLI) | payer MEDICARE | END | disposition home or self-care (01) | LOC: C.LABMFLN 12:16 | PROVIDERS: ATTEND Urology | DX: R35.0 Frequency of micturition (principal) ==

== ENCOUNTER → 2017-03-24 | Outpatient (CLI) | payer MEDICARE ==
[2017-03-24 17:54] LABS: URINE APPEARANCE CLEAR (CLEAR); URINE BILIRUBIN NEG (NEG); URINE COLOR YELLOW; URINE NITRITE NEG (NEG); URINE PH 5.5 (4.5-7.5); URINE SPECIFIC GRAVITY 1.019 (1.000-1.030); UROBILINOGEN NEG (NEG)
[2017-03-24 17:56] LABS: MANUAL MICROSCOPIC REQUIRED? NO; REVIEW REQ? NO
--- NOTE | 2017-03-30 07:57 | CODING QUERY MEDICAL NECESSITY ---
CQSUPPORTING DIAGNOSIS NEEDED A supporting diagnosis is required for the test/procedure performed on this patient in order for us to be reimbursed by the patient's insurance. Please provide a supporting diagnosis for the following test/procedure listed below next to the test name along with your signature. *If there is no additional diagnosis for this patient that would support the following test/procedure please document that below next to the test/procedure. Test(s)/Procedure(s) that require a supporting diagnosis: EBONY 03/24/17 URINE CULTURE Provider Signature: Date: Thank you Elaina [facility] [employer] Once completed, please kindly fax back to [phone] For questions please call [phone]
== END | disposition home or self-care (01) ==
LOC: C.LABMFLN 12:04
PROVIDERS: ATTEND Urology
DX: N35.9 Urethral stricture, unspecified (principal); R33.9 Retention of urine, unspecified; R35.0 Frequency of micturition

== ENCOUNTER → 2017-12-12 | Outpatient (CLI) | payer MEDICARE ==
[2017-12-12 12:40] LABS: BASO % 0.6 %; BASO ABS # 0.04 K/uL (0-0.2); EOS % 2.2 %; EOS ABS # 0.14 K/uL (0-0.5); HEMOGLOBIN 15.4 g/dL (14.0-18.0); IG# 0.02 K/uL (0.00-0.02); LYMPH % 26.1 %; LYMPH ABS # 1.66 K/uL (1.2-3.4); MEAN CELL VOLUME 98.3 fL (80-100); MEAN CORPUSCULAR HEMOGLOBIN 32.9 pg (25-34); MEAN CORPUSCULAR HGB CONC 33.5 g/dl (32-36); MEAN PLATELET VOLUME 10.7 fL (7.4-10.4); MONO % 14.3 %; MONO ABS # 0.91 K/uL (0.11-0.59); NEUT % 56.5 %; NEUT ABS # 3.58 K/uL (1.4-6.5); PLATELET COUNT 164 K/uL (130-400); RED CELL DISTRIBUTION WIDTH CV 13.8 % (11.5-14.5); RED CELL DISTRIBUTION WIDTH SD 49.3 fL (36.4-46.3); WHITE BLOOD COUNT 6.35 K/uL (4.8-10.8)
[2017-12-12 13:21] LABS: ALBUMIN 3.5 gm/dl (3.4-5.0); ALT/SGPT 18 U/L (12-78); AST/SGOT 17 U/L (15-37); BLOOD UREA NITROGEN 13 mg/dl (7-18); CALCIUM 8.5 mg/dl (8.5-10.1); CARBON DIOXIDE 31 mmol/L (21-32); CREATININE 0.94 mg/dl (0.60-1.40); GLUCOSE 91 mg/dl (70-99); POTASSIUM 3.5 mmol/L (3.5-5.1); SODIUM 138 mmol/L (136-145)
[2017-12-12 13:31] LABS: ALKALINE PHOSPHATASE 55 U/L (45-117); CHOLESTEROL 137 mg/dl (0-200); LDL CHOLESTEROL CALCULATED 67 mg/dl; TOTAL PROTEIN 6.9 gm/dl (6.4-8.2)
== END | disposition home or self-care (01) ==
LOC: C.LABMFLN 07:28
PROVIDERS: ATTEND Family Medicine
DX: I10 Essential (primary) hypertension (principal); E78.5 Hyperlipidemia, unspecified